=== PATIENT | male | born 1980 | race Caucasian/White ===

== ENCOUNTER 2018-04-08 10:30 | Inpatient (IN) | payer OTHER ==
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
[2018-04-08 11:14] LABS: PLATELET COUNT 335 10^3/uL (150-400)
[2018-04-08] MEDS: ACYCLOVIR 200 MG CAP PO SCH ×4 (11:33→20:51)
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
[2018-04-08] MEDS ORDERED: ACYCLOVIR 200 MG/5 ML 60 ML BTL PO SCH (14:00)
--- NOTE | 2018-04-08 14:06 | ASMTTCLDSP ---
TLC Discharge Disposition Disposition: Answers: Admit Disposition Notes: Notes: Pt to be admitted to unit as a voluntary patient, per Chely Al MD as he is committed to receiving treatment. For inpatient Chely Al MD admission, the following psychiatrist agreed to accept patient for admission to Behavioral [facility] ([facility]): Date Signed: 04/08/2018 02:06 PM Electronically Signed By:Melodei Melendrez
[2018-04-08] MEDS ORDERED: MAG HYDROX/AL HYDROX/SIMETH 30 ML UDCUP PO PRN (18:17)
[2018-04-08] MEDS ORDERED: ACETAMINOPHEN 325 MG TAB PO PRN (18:17)
[2018-04-08] MEDS ORDERED: MAGNESIUM HYDROXIDE 30 ML UDCUP PO PRN (18:17)
[2018-04-08] MEDS: QUEtiapine FUMARATE 200 MG TAB PO SCH (20:51)
[2018-04-08] MEDS: traMADol 50 MG TAB PO PRN (20:51)
[2018-04-08] MEDS: GABAPENTIN 400 MG CAP PO SCH (20:51)
[2018-04-08] MEDS: LORazepam 0.5 MG TAB PO PRN (20:51)
[2018-04-08] MEDS: OXcarbazepine 300 MG TAB PO SCH ×2 (20:51→20:58)
[2018-04-09] MEDS: ACYCLOVIR 200 MG CAP PO SCH ×5 (05:41→20:26)
[2018-04-09] MEDS: GABAPENTIN 400 MG CAP PO SCH ×4 (05:41→20:26)
[2018-04-09] MEDS: LORazepam 0.5 MG TAB PO PRN ×3 (07:50→20:27)
[2018-04-09] MEDS: NICOTINE POLACRILEX 2 MG GUM B PRN (07:51)
[2018-04-09] MEDS: traMADol 50 MG TAB PO PRN ×2 (07:52→16:15)
[2018-04-09] MEDS: OXcarbazepine 300 MG TAB PO SCH (07:54)
[2018-04-09] MEDS: QUEtiapine FUMARATE 100 MG TAB PO SCH ×2 (07:55→12:35)
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
--- NOTE | 2018-04-09 10:14 | PDMN ---
Medical Necessity Medical [place] [id number], Major Depressive Disorder, Adult: Inpatient Care , 3 days: 37 yo w/ major depressive d/o, mod, recurrent, suicidal ideation, risk of harm to self. PTSD. Admit to IP BEH
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
[2018-04-09] MEDS: NEOMY SULF/BACITRAC ZN/POLY 30 GM OINTTUBE TP SCH ×2 (17:21→23:56)
[2018-04-09] MEDS: QUEtiapine FUMARATE 200 MG TAB PO SCH (20:27)
[2018-04-10] MEDS: GABAPENTIN 400 MG CAP PO SCH ×4 (05:55→20:33)
[2018-04-10] MEDS: ACYCLOVIR 200 MG CAP PO SCH ×5 (05:56→20:33)
[2018-04-10] MEDS: NEOMY SULF/BACITRAC ZN/POLY 30 GM OINTTUBE TP SCH ×3 (05:56→17:26)
[2018-04-10] MEDS: LORazepam 0.5 MG TAB PO PRN ×3 (08:14→20:33)
[2018-04-10] MEDS: QUEtiapine FUMARATE 100 MG TAB PO SCH ×2 (08:14→12:13)
[2018-04-10] MEDS: traMADol 50 MG TAB PO PRN (08:14)
--- NOTE | 2018-04-10 08:36 | ASMTCMCOM ---
CM Note CM Note Notes: CC meets with client this morning for check-in. Client describes his mood as "good," while denying any feelings of anxiety, depression, AVH and/or S/I-H/I. Additionally, client suggests that "I am going home after I get out on night or Monday and do NOT want any help with getting connected to [facility] or others here." Client refused to sign DOMI for [facility] in order for CC to set up any follow up appts. Date Signed: 04/10/2018 08:35 AM Electronically Signed By:Domingo Garay
--- NOTE | 2018-04-10 16:05 | SOAPPROG ---
SOAP Progress Note Assessment/Plan: Assessment: Plan: 04/10/18 16:06 SI has diminished. Will [facility], monitor. Subjective: Pt seen, discussed with staff, interviewed in Treatment Team meeting. He reports feeling "a lot better." Primarily sleeping in his room. Did attend one group last night. Compliant with medications. Asks for amphetamines again. Objective: Vital Signs Temp Pulse Resp BP Pulse Ox 36.3 C 96 18 122/78 H 92 04/10/18 06:00 04/10/18 06:00 04/10/18 06:00 04/10/18 06:00 04/10/18 06:00 MSE: Calm, coop. Affect is blunted, stable, approp. Mood is "better." TP is linear. TC reveals no psychosis. Denies current SI. - Time Spent With Patient Time Spent With Patient: 15" ICD10 Worksheet Patient Problems: Problems Problem Status Onset Genital herpes in men Acute Suicidal ideation Acute
[2018-04-10] MEDS: QUEtiapine FUMARATE 200 MG TAB PO SCH (20:33)
[2018-04-11] MEDS ORDERED: GABAPENTIN 400 MG CAP PO SCH
[2018-04-11] MEDS: NEOMY SULF/BACITRAC ZN/POLY 30 GM OINTTUBE TP SCH ×4 (00:33→16:23)
[2018-04-11] MEDS: traMADol 50 MG TAB PO PRN ×3 (04:37→20:19)
[2018-04-11] MEDS: ACYCLOVIR 200 MG CAP PO SCH ×5 (05:53→21:36)
[2018-04-11] MEDS: GABAPENTIN 400 MG CAP PO SCH ×4 (05:53→20:10)
[2018-04-11] MEDS: QUEtiapine FUMARATE 100 MG TAB PO SCH ×2 (08:20→12:30)
[2018-04-11] MEDS: LORazepam 0.5 MG TAB PO PRN ×3 (08:20→21:38)
--- NOTE | 2018-04-11 13:25 | SOAPPROG ---
SOAP Progress Note Assessment/Plan: Assessment: Plan: 04/10/18 16:06 SI has diminished. Will CCM, monitor. 04/11/18 13:28 Mood/SI: Continued improvement. CCM. Subjective: Pt seen, discussed with staff. Reports feeling "fine." Minimally interactive, though in good behavioral control. Compliant with meds. Offers no c/o's. States he is looking forward to returning to [place]. SI "a lot better." Objective: Vital Signs Temp Pulse Resp BP Pulse Ox 36.7 C 84 16 134/89 H 91 L 04/11/18 06:00 04/11/18 06:00 04/11/18 06:00 04/11/18 06:00 04/11/18 06:00 MSE: Marginally groomed, calm and coop. Affect is blunted, stable, approp. Mood is "good." TP is linear. TC reveals no psychosis. Denies current SI. - Time Spent With Patient Time Spent With Patient: 15" ICD10 Worksheet Patient Problems: Problems Problem Status Onset Genital herpes in men Acute Suicidal ideation Acute
[2018-04-11] MEDS: QUEtiapine FUMARATE 200 MG TAB PO SCH (20:10)
[2018-04-12] MEDS: NEOMY SULF/BACITRAC ZN/POLY 30 GM OINTTUBE TP SCH ×2 (00:54→05:33)
[2018-04-12] MEDS: LORazepam 0.5 MG TAB PO PRN (04:19)
[2018-04-12] MEDS: traMADol 50 MG TAB PO PRN (04:20)
[2018-04-12] MEDS: GABAPENTIN 400 MG CAP PO SCH (05:32)
[2018-04-12] MEDS: ACYCLOVIR 200 MG CAP PO SCH ×2 (05:33→09:27)
[2018-04-12 06:50] VITALS: BP 120/69
--- NOTE | 2018-04-12 07:41 | ASMTBHDC ---
Notes Note: Notes: Client would not allow CC to complete any discharge planning. CC provided the following resources to client: Follow up with: Please note client would not allow Manager Call to schedule any follow up appts. Additional information: [facility]: [facility] [address] Follow-up: This is for the initial 30 minute appt to do paperwork and Ct should bring ID, insurance card, etc. [place] office: [address] [place] [address] Mon, Wed, and Fri 8:30am-2pm. [place] office: [address], [place] [address] Mon. and Wed., 9 am-2 pm [place] office: [address] [facility], [address] [facility] (adults), [place] [address] Mon-Fri., 9 am-2 pm Additional Resources: [facility] ([facility] [place] [facility]) [address] [place] [id number] Date Signed: 04/12/2018 07:40 AM Electronically Signed By:Domingo Garay
[2018-04-12] MEDS: QUEtiapine FUMARATE 100 MG TAB PO SCH (08:40)
[2018-04-12] MEDS: NICOTINE POLACRILEX 2 MG GUM B PRN (09:27)
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
== END 2018-04-12 10:31 | disposition home or self-care (01) | DRG 882 ==
LOC: BBEH 15:35
PROVIDERS: ADMIT Psychiatry & Neurology Behavioral Neurology & Neuropsychiatry; ATTEND Psychiatry & Neurology Behavioral Neurology & Neuropsychiatry
DX: F43.10 Post-traumatic stress disorder, unspecified (principal); Z76.5 Malingerer [conscious simulation]; Z59.0 Homelessness; F17.200 Nicotine dependence, unspecified, uncomplicated; A60.02 Herpesviral infection of other male genital organs; B19.20 Unspecified viral hepatitis C without hepatic coma; G89.29 Other chronic pain; E66.9 Obesity, unspecified; I10 Essential (primary) hypertension
CPT/HCPCS: 80305; G0480